=== PATIENT | female | born 1955 | race Caucasian/White ===

== ENCOUNTER 2016-11-02 08:11 | Emergency (ER) | payer OTHER ==
[2016-11-02 08:43] VITALS: BP 135/79
--- NOTE | 2016-11-02 09:00 | UC ---
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 THE NEXT DAY NOTICED RIGHT EYE WAS RED AND EYELID WAS SWOLLEN AND ITCHY. NO VISUAL DISTURBANCE. EYE WAS CRUSTED SHUT YESTERDAY MORNING. NO NAUSEA OR PHOTOPHOBIA. - History of Current Complaint Chief Complaint: UCEye Stated Complaint: EYE COMPLAINT Time Seen by Provider: 11/02/16 08:54 Hx Obtained From: Patient Onset/Duration: Gradual Onset, Lasting Days, Still Present Timing: Constant Severity Initially: Moderate Severity Currently: Moderate Pain Intensity: 0 Pain Scale Used: 0-10 Numeric Location of Injury: Eye Lid (lower), Eye Lid (upper) Aggravating Factor(s): Nothing Alleviating Factor(s): Nothing Associated Signs And Symptoms: Positive: Drainage (Clear) - Allergies/Home Medications Allergies/Adverse Reactions: Allergies Allergy/AdvReac Type Severity Reaction Status Date / Time No Known Allergies Allergy Verified 05/09/16 17:52 PMH/Surg Hx/FS Hx/Imm Hx Endocrine History Of: Denies: Diabetes, Thyroid Disease Cardiovascular History Of: Denies: Cardiac Disorders, Hypertension Respiratory History Of: Denies: COPD, Asthma GI/ History Of: Reports: Renal Disease Denies: Ulcer Cancer History Of: Denies: Breast Cancer - Surgical History Surgical History: Yes Surgery Procedure, Year, and Place: hysterectomy,elbow left - Family History Known Family History: Positive: Other - Diverticulitis (mother), Crohn's ( brother) - Social History Alcohol Use: Rare Substance Use Type: None Smoking Status (MU): Never Smoked Tobacco Review of Systems Constitutional: Negative Eyes: Drainage, Eye Redness Respiratory: Negative Cardiovascular: Negative Gastrointestinal: Negative All Other Systems Reviewed And Are Negative: Yes Physical Exam Triage Information Reviewed: Yes Appearance: Well-Appearing, No Pain Distress, Well-Nourished Vital Signs: Initial Vital Signs Temp 98.3 F 11/02/16 08:37 Pulse 64 11/02/16 08:37 Resp 17 11/02/16 08:37 BP 135/79 11/02/16 08:37 Pulse Ox 98 11/02/16 08:37 Vital Signs Reviewed: Yes Eyes: Positive: Conjunctiva Inflamed - VERY MILDLY INFLAMED RIGHT EYE., Other: - PERRL. EOMI. RIGHT UPPER AND LOWER LID WITH MILD EDEMA AND ERYTHEMA ENT: Positive: Hearing grossly normal Neck: Positive: Supple Respiratory: Positive: No respiratory distress, No accessory muscle use Cardiovascular: Positive: Pulses Normal Abdomen Description: Positive: Soft Musculoskeletal: Positive: No Edema Neurological: Positive: Alert Psychological: Positive: Age Appropriate Behavior Skin: Negative: rashes Eye Complaint Course/Dx - Differential Dx/Diagnosis Provider Diagnoses: RIGHT EYE BLEPHARITIS Discharge - Discharge Plan Condition: Stable Disposition: HOME Prescriptions: Erythromycin OPHTH.OINT* [Ilotycin OPHTH.OINT*] 1 applic RIGHT EYE QID #1 tube predniSONE TAB* [Deltasone TAB*] 50 mg PO DAILY #5 tab Patient Education Materials: Blepharitis (ED) Referrals: Fredy Lozoya MD [Primary Care Provider] - If Needed Additional Instructions: IF YOUR SYMPTOMS ARE NOT IMPROVING WITH THE OINTMENT AND WARM COMPRESSES GO AHEAD AND FILL STEROID TO HELP WITH SWELLING AND ITCH. BLEPHARITIS What is blepharitis? Blepharitis is inflammation of the eyelids that causes redness and swelling of the lids. The symptoms might get better and then come back. But blepharitis rarely causes problems with your vision. Blepharitis is more common in people who have certain skin conditions, including : Rosacea - This causes redness and raised, red bumps on the cheeks, nose, chin, forehead, or eyelids. Seborrhea This causes redness, scaly patches, and itching, mostly on the scalp. Dandruff is a mild form of seborrhea. What are the symptoms of blepharitis? The symptoms include: Eyelids that are red, swollen, and itchy A gritty or burning feeling in the eyes Red eyes Crusty, matted eyelashes in the morning Flaking or scaling of the eyelid skin Is there a test for blepharitis? No. There is no test. But your doctor or nurse should be able to tell if you have it by learning about your symptoms and doing an exam. Is there anything I can do on my own to feel better? Yes. You can: Put warm, wet pressure on your eyes Wet a clean wash cloth with warm (not scalding hot) water and put it over your eyes. When the wash cloth cools, reheat it with warm water and put it back over your eyes. Repeat these steps for 5 minutes, 2 to 4 times a day. Gently rub your eyelids Do this right after putting warm, wet pressure on your eyes (see above). Use the washcloth or a clean fingertip to gently rub your eyelid in small circles. Wash your eyelids Use plain warm water or warm water with a drop of baby shampoo on a clean washcloth, gauze pad, or cotton swab. Gently clean any crusty material off the eyelashes and eyelids. Do not rub hard or you can cause more irritation. You can also use [id number] eyelid scrubs and pads. How is blepharitis treated? If the treatments you do on your own do not help, your doctor might prescribe: An antibiotic cream or ointment to put on your eyelids Antibiotic pills
== END 2016-11-02 09:29 | disposition home or self-care (01) ==
LOC: UCEAST 08:11
DX: H01.002 Unspecified blepharitis right lower eyelid (principal); H01.001 Unspecified blepharitis right upper eyelid
CPT/HCPCS: 99212; G0463